=== PATIENT | female | born 1940 | race Caucasian/White ===

== ENCOUNTER 2018-08-23 15:09 | Inpatient (IN) | payer OTHER, MEDICAID ==
[~2018-08-23] VITALS: Ht 165.1 cm; Wt 65.3 kg
[2018-08-23 15:17] VITALS: Ht 165.1 cm; Wt 65.3 kg
[2018-08-23 15:56] LABS: PLATELET COUNT 223 x10^3mcL (130-400); RED CELL DISTRIBUTION WIDTH 14.4 % (11.5-14.5)
[2018-08-23 15:56] LABS: UA SPECIFIC GRAVITY 1.025 (1.005-1.035); microscopic required? YES; urine erythrocyte 3+ (NEGATIVE)
[2018-08-23 16:04] LABS: CALCIUM 9.1 mg/dL (8.5-10.1); CARBON DIOXIDE 25.9 mmol/L (21-32); CHLORIDE SERUM 96 mmol/L (98-107); CREATININE SERUM 1.3 mg/dL (0.6-1.0); GLUCOSE SERUM 327 mg/dL (74-106); POTASSIUM SERUM 3.9 mmol/L (3.5-5.1); SODIUM SERUM 130 mmol/L (136-145)
[2018-08-23 16:09] LABS: ALKALINE PHOSPHATASE 102 U/L (46-116); ALT/SGPT 17 U/L (14-59); AST/SGOT 24 U/L (15-37); BILIRUBIN TOTAL 0.76 mg/dL (0.20-1.00); TOTAL PROTEIN, SERUM 7.3 g/dL (6.4-8.2)
[2018-08-23 16:10] LABS: ALBUMIN 2.1 g/dL (3.4-5.0)
[2018-08-23 17:15] LABS: BAND NEUTROPHIL 10 % (0-10); BASOPHIL 0 % (0-2); MONOCYTE 2 % (0-7); PLATELET MORPHOLOGY PLATELETS NORMAL; SEGMENTED NEUTROPHILS 83 % (37-75); rbc morphology (normal/abnorm) NORMAL (NORMAL)
[2018-08-23 17:35] LABS: PHOSPHOROUS 1.9 mg/dL (2.5-4.9)
[2018-08-23 17:38] LABS: CHOLESTEROL/HDL RATIO 8.5
[2018-08-23 17:41] LABS: T3 TOTAL 0.58 ng/mL
[2018-08-23 17:43] VITALS: BP 145/63
[2018-08-23] MEDS ORDERED: GLIPIZIDE5 M2 (17:48)
[2018-08-23] MEDS ORDERED: GABAPENTIN100 M2 PO (17:48)
[2018-08-23] MEDS ORDERED: LANTUS SOLOS100 U/M1 INJ (17:49)
[2018-08-23] MEDS ORDERED: ZOCOR20 MG PO (17:50)
[2018-08-23] MEDS ORDERED: ZOLOFT50 MG PO (17:50)
[2018-08-23 18:06] LABS: FREE T4 1.48 ng/dL (0.76-1.46); FREE THYROXINE INDEX 3.2 ug/dL (1.4-4.5); T4(THYROXINE) 8.3 ug/dL (4.7-13.3)
[2018-08-23 20:43] VITALS: BP 136/60
[2018-08-24 05:34] VITALS: BP 127/68
[2018-08-24 06:02] LABS: PLATELET COUNT 191 x10^3mcL (130-400); RED CELL DISTRIBUTION WIDTH 14.4 % (11.5-14.5)
[2018-08-24 06:27] LABS: CALCIUM 8.4 mg/dL (8.5-10.1); CARBON DIOXIDE 23.7 mmol/L (21-32); CHLORIDE SERUM 105 mmol/L (98-107); CREATININE SERUM 1.1 mg/dL (0.6-1.0); GLUCOSE SERUM 249 mg/dL (74-106); PHOSPHOROUS 2.5 mg/dL (2.5-4.9); POTASSIUM SERUM 3.9 mmol/L (3.5-5.1); SODIUM SERUM 137 mmol/L (136-145)
[2018-08-24 07:23] LABS: BAND NEUTROPHIL 1 % (0-10); BASOPHIL 0 % (0-2); MONOCYTE 1 % (0-7); SEGMENTED NEUTROPHILS 94 % (37-75)
[2018-08-24 07:24] LABS: PLATELET MORPHOLOGY PLATELETS DECREASED; rbc morphology (normal/abnorm) ABNORMAL (NORMAL)
[2018-08-24 08:30] VITALS: BP 118/70
[2018-08-24 13:30] VITALS: BP 113/60
[2018-08-24 16:30] VITALS: BP 135/70
[2018-08-24 20:19] VITALS: BP 150/73
[2018-08-25 04:56] VITALS: BP 128/61
[2018-08-25 06:26] LABS: BASOPHIL % 0.1 % (0-2); PLATELET COUNT 189 x10^3mcL (130-400); RED CELL DISTRIBUTION WIDTH 14.4 % (11.5-14.5)
[2018-08-25 07:07] LABS: CALCIUM 8.2 mg/dL (8.5-10.1); CARBON DIOXIDE 22.6 mmol/L (21-32); CHLORIDE SERUM 107 mmol/L (98-107); CREATININE SERUM 1.1 mg/dL (0.6-1.0); GLUCOSE SERUM 150 mg/dL (74-106); POTASSIUM SERUM 3.3 mmol/L (3.5-5.1); SODIUM SERUM 138 mmol/L (136-145)
[2018-08-25 09:23] VITALS: BP 115/64
[2018-08-25 12:44] VITALS: BP 120/57
[2018-08-25 17:37] VITALS: BP 128/68
[2018-08-25 21:43] VITALS: BP 123/58
[2018-08-26 05:19] VITALS: BP 125/56
[2018-08-26 07:33] LABS: CALCIUM 7.9 mg/dL (8.5-10.1); CHLORIDE SERUM 108 mmol/L (98-107); CREATININE SERUM 1.1 mg/dL (0.6-1.0); GLUCOSE SERUM 111 mg/dL (74-106); POTASSIUM SERUM 4.3 mmol/L (3.5-5.1); SODIUM SERUM 136 mmol/L (136-145)
[2018-08-26 07:43] LABS: PLATELET COUNT 61 x10^3mcL (130-400); RED CELL DISTRIBUTION WIDTH 15.3 % (11.5-14.5)
[2018-08-26 10:03] VITALS: BP 143/68
[2018-08-26 12:27] LABS: BAND NEUTROPHIL 1 % (0-10); BASOPHIL 0 % (0-2); MONOCYTE 3 % (0-7); SEGMENTED NEUTROPHILS 90 % (37-75)
[2018-08-26 12:28] LABS: PLATELET MORPHOLOGY PLATELETS DECREASED; rbc morphology (normal/abnorm) ABNORMAL (NORMAL)
[2018-08-26 17:00] VITALS: BP 142/69
[2018-08-26 20:26] VITALS: BP 138/63
[2018-08-27 06:46] VITALS: BP 142/65
[2018-08-27 09:02] LABS: CALCIUM 8.5 mg/dL (8.5-10.1); CARBON DIOXIDE 27.2 mmol/L (21-32); CHLORIDE SERUM 105 mmol/L (98-107); GLUCOSE SERUM 198 mg/dL (74-106); POTASSIUM SERUM 4.4 mmol/L (3.5-5.1); SODIUM SERUM 138 mmol/L (136-145)
[2018-08-27 09:08] LABS: PLATELET COUNT 247 x10^3mcL (130-400)
[2018-08-27 09:12] VITALS: BP 137/57
[2018-08-27 09:18] LABS: BASOPHIL % 0 % (0-2); RED CELL DISTRIBUTION WIDTH 14.8 % (11.5-14.5)
[2018-08-27 17:10] VITALS: BP 146/63
[2018-08-27 21:13] VITALS: BP 133/67
[2018-08-28 05:31] VITALS: BP 123/50
[2018-08-28 06:21] LABS: BASOPHIL % 0.2 % (0-2); PLATELET COUNT 276 x10^3mcL (130-400)
[2018-08-28 06:27] LABS: CALCIUM 8.1 mg/dL (8.5-10.1); CARBON DIOXIDE 26.2 mmol/L (21-32); CHLORIDE SERUM 107 mmol/L (98-107); GLUCOSE SERUM 178 mg/dL (74-106); POTASSIUM SERUM 4.6 mmol/L (3.5-5.1); SODIUM SERUM 139 mmol/L (136-145)
[2018-08-28 06:43] LABS: RED CELL DISTRIBUTION WIDTH 14.8 % (11.5-14.5)
[2018-08-28 08:44] VITALS: BP 139/66
[2018-08-28 11:51] VITALS: BP 149/74
[2018-08-28 17:01] VITALS: BP 129/60
[2018-08-28 22:08] VITALS: BP 129/48
[2018-08-29 06:10] VITALS: BP 131/59
[2018-08-29 06:37] LABS: BASOPHIL % 0.2 % (0-2); PLATELET COUNT 321 x10^3mcL (130-400); RED CELL DISTRIBUTION WIDTH 14.5 % (11.5-14.5)
[2018-08-29 07:06] LABS: CALCIUM 8.4 mg/dL (8.5-10.1); CARBON DIOXIDE 27.5 mmol/L (21-32); CHLORIDE SERUM 105 mmol/L (98-107); GLUCOSE SERUM 144 mg/dL (74-106); MAGNESIUM 1.7 mg/dL (1.8-2.4); PHOSPHOROUS 3.2 mg/dL (2.5-4.9); POTASSIUM SERUM 5.3 mmol/L (3.5-5.1); SODIUM SERUM 137 mmol/L (136-145)
[2018-08-29 09:10] VITALS: BP 120/55
[2018-08-29 09:45] LABS: ALBUMIN 1.4 g/dL (3.4-5.0); BILIRUBIN DIRECT 0.13 mg/dL (0.0-0.2); BILIRUBIN TOTAL 0.2 mg/dL (0.20-1.00); TOTAL PROTEIN, SERUM 5.9 g/dL (6.4-8.2)
[2018-08-29 17:35] VITALS: BP 117/44
[2018-08-29 20:30] VITALS: BP 112/53
[2018-08-30 05:52] VITALS: BP 131/54
[2018-08-30 05:58] LABS: PLATELET COUNT 376 x10^3mcL (130-400)
[2018-08-30 06:15] LABS: RED CELL DISTRIBUTION WIDTH 14.9 % (11.5-14.5)
[2018-08-30 06:34] LABS: CALCIUM 8.4 mg/dL (8.5-10.1); CARBON DIOXIDE 27.4 mmol/L (21-32); CHLORIDE SERUM 104 mmol/L (98-107); GLUCOSE SERUM 80 mg/dL (74-106); MAGNESIUM 1.8 mg/dL (1.8-2.4); POTASSIUM SERUM 4.2 mmol/L (3.5-5.1); SODIUM SERUM 139 mmol/L (136-145)
[2018-08-30 08:46] LABS: BAND NEUTROPHIL 7 % (0-10); BASOPHIL 0 % (0-2); MONOCYTE 7 % (0-7); SEGMENTED NEUTROPHILS 68 % (37-75)
[2018-08-30 08:47] LABS: PLATELET MORPHOLOGY PLATELETS NORMAL; rbc morphology (normal/abnorm) ABNORMAL (NORMAL)
[2018-08-30 08:50] VITALS: BP 140/53
[2018-08-30 17:00] VITALS: BP 98/56
[2018-08-30 20:39] VITALS: BP 116/58
[2018-08-31 06:31] VITALS: BP 111/56
[2018-08-31 06:40] LABS: CARBON DIOXIDE 27.6 mmol/L (21-32); CHLORIDE SERUM 99 mmol/L (98-107); CREATININE SERUM 1.3 mg/dL (0.6-1.0); GLUCOSE SERUM 201 mg/dL (74-106); MAGNESIUM 1.8 mg/dL (1.8-2.4); PHOSPHOROUS 3.7 mg/dL (2.5-4.9); POTASSIUM SERUM 4.4 mmol/L (3.5-5.1); SODIUM SERUM 134 mmol/L (136-145)
[2018-08-31 07:40] LABS: PLATELET COUNT 445 x10^3mcL (130-400); RED CELL DISTRIBUTION WIDTH 14.9 % (11.5-14.5)
[2018-08-31 08:23] VITALS: BP 125/67
[2018-08-31 09:28] LABS: BAND NEUTROPHIL 10 % (0-10); BASOPHIL 0 % (0-2); MONOCYTE 7 % (0-7); SEGMENTED NEUTROPHILS 67 % (37-75)
[2018-08-31 09:30] LABS: PLATELET MORPHOLOGY PLATELETS NORMAL; rbc morphology (normal/abnorm) ABNORMAL (NORMAL)
[2018-08-31 17:21] VITALS: BP 111/67
[2018-08-31 22:09] VITALS: BP 119/63
[2018-09-01 05:27] VITALS: BP 107/51
[2018-09-01 07:34] LABS: PLATELET COUNT 385 x10^3mcL (130-400); RED CELL DISTRIBUTION WIDTH 14.5 % (11.5-14.5)
[2018-09-01 07:56] LABS: CALCIUM 8.4 mg/dL (8.5-10.1); CARBON DIOXIDE 25.8 mmol/L (21-32); CHLORIDE SERUM 104 mmol/L (98-107); CREATININE SERUM 1.3 mg/dL (0.6-1.0); GLUCOSE SERUM 135 mg/dL (74-106); MAGNESIUM 2.1 mg/dL (1.8-2.4); POTASSIUM SERUM 4.2 mmol/L (3.5-5.1); SODIUM SERUM 138 mmol/L (136-145)
[2018-09-01 09:59] VITALS: BP 112/55
[2018-09-01 16:22] LABS: BAND NEUTROPHIL 10 % (0-10); BASOPHIL 0 % (0-2); MONOCYTE 4 % (0-7); PLATELET MORPHOLOGY PLATELETS NORMAL; SEGMENTED NEUTROPHILS 78 % (37-75); rbc morphology (normal/abnorm) NORMAL (NORMAL)
[2018-09-01 16:51] VITALS: BP 111/55
[2018-09-01 21:28] VITALS: BP 104/52
[2018-09-02 05:03] VITALS: BP 131/65
[2018-09-02 06:37] LABS: CALCIUM 7.9 mg/dL (8.5-10.1); CARBON DIOXIDE 27.4 mmol/L (21-32); CHLORIDE SERUM 104 mmol/L (98-107); GLUCOSE SERUM 163 mg/dL (74-106); MAGNESIUM 2.2 mg/dL (1.8-2.4); PHOSPHOROUS 2.6 mg/dL (2.5-4.9); SODIUM SERUM 138 mmol/L (136-145)
[2018-09-02 07:24] LABS: RED CELL DISTRIBUTION WIDTH 13.5 % (11.5-14.5)
[2018-09-02 08:30] LABS: BASOPHIL % 0 % (0-2); PLATELET COUNT 449 x10^3mcL (130-400)
[2018-09-02 10:07] VITALS: BP 123/57
[2018-09-02 18:41] VITALS: BP 134/65
[2018-09-02 21:59] VITALS: BP 122/62
[2018-09-03 06:00] VITALS: BP 123/57
[2018-09-03 07:08] LABS: CALCIUM 8.1 mg/dL (8.5-10.1); CARBON DIOXIDE 27.9 mmol/L (21-32); CHLORIDE SERUM 105 mmol/L (98-107); GLUCOSE SERUM 160 mg/dL (74-106); MAGNESIUM 2.1 mg/dL (1.8-2.4); SODIUM SERUM 138 mmol/L (136-145)
[2018-09-03 07:38] LABS: BASOPHIL % 0.1 % (0-2); RED CELL DISTRIBUTION WIDTH 13.9 % (11.5-14.5)
[2018-09-03 08:22] LABS: PLATELET COUNT 490 x10^3mcL (130-400)
[2018-09-03 09:19] VITALS: BP 103/53
[2018-09-03 13:06] VITALS: BP 121/66
[2018-09-03 17:42] VITALS: BP 120/60
[2018-09-03 20:29] VITALS: BP 128/62
[2018-09-04 05:13] VITALS: BP 120/62
[2018-09-04 06:21] LABS: CALCIUM 8.4 mg/dL (8.5-10.1); CARBON DIOXIDE 31.2 mmol/L (21-32); CHLORIDE SERUM 104 mmol/L (98-107); CREATININE SERUM 1.1 mg/dL (0.6-1.0); GLUCOSE SERUM 155 mg/dL (74-106); MAGNESIUM 2.1 mg/dL (1.8-2.4); POTASSIUM SERUM 4.8 mmol/L (3.5-5.1); SODIUM SERUM 138 mmol/L (136-145)
[2018-09-04 08:02] LABS: PLATELET COUNT 503 x10^3mcL (130-400); RED CELL DISTRIBUTION WIDTH 14.9 % (11.5-14.5)
[2018-09-04 10:26] VITALS: BP 119/53
[2018-09-04 13:06] LABS: BAND NEUTROPHIL 0 % (0-10); BASOPHIL 0 % (0-2); MONOCYTE 6 % (0-7); SEGMENTED NEUTROPHILS 69 % (37-75); rbc morphology (normal/abnorm) NORMAL (NORMAL)
[2018-09-04 13:07] LABS: PLATELET MORPHOLOGY PLATELETS INCREASED
[2018-09-04 14:25] VITALS: BP 100/55
[2018-09-04 17:30] VITALS: BP 122/64
[2018-09-05 05:45] VITALS: BP 106/69
[2018-09-05 07:07] LABS: BASOPHIL % 0.4 % (0-2)
[2018-09-05 07:08] LABS: PLATELET COUNT 418 x10^3mcL (130-400); RED CELL DISTRIBUTION WIDTH 14.7 % (11.5-14.5)
[2018-09-05 07:24] LABS: CALCIUM 8.1 mg/dL (8.5-10.1); CARBON DIOXIDE 28.9 mmol/L (21-32); CHLORIDE SERUM 100 mmol/L (98-107); CREATININE SERUM 1.2 mg/dL (0.6-1.0); GLUCOSE SERUM 177 mg/dL (74-106); POTASSIUM SERUM 4.9 mmol/L (3.5-5.1); SODIUM SERUM 134 mmol/L (136-145)
[2018-09-05 10:26] VITALS: BP 98/55
[2018-09-05 14:39] VITALS: BP 105/53
[2018-09-05 16:20] VITALS: BP 122/68
[2018-09-05 21:29] VITALS: BP 111/44
[2018-09-06] VITALS (10 sets, daily range): BP systolic 93–108; BP diastolic 41–60
[2018-09-06 06:30] LABS: CARBON DIOXIDE 30.4 mmol/L (21-32); CHLORIDE SERUM 103 mmol/L (98-107); CREATININE SERUM 1.1 mg/dL (0.6-1.0); GLUCOSE SERUM 142 mg/dL (74-106); POTASSIUM SERUM 4.3 mmol/L (3.5-5.1); SODIUM SERUM 136 mmol/L (136-145)
[2018-09-06 06:56] LABS: BASOPHIL % 0.4 % (0-2); RED CELL DISTRIBUTION WIDTH 13.7 % (11.5-14.5)
[2018-09-06 07:38] LABS: PLATELET COUNT 406 x10^3mcL (130-400)
[2018-09-06 09:52] LABS: rbc morphology (normal/abnorm) ABNORMAL (NORMAL); tear drop cell (dacryocyte) 1+
[2018-09-06 12:17] LABS: BASOPHIL % 0.4 % (0-2); PLATELET COUNT 395 x10^3mcL (130-400); RED CELL DISTRIBUTION WIDTH 14.4 % (11.5-14.5)
[2018-09-06 13:56] LABS: rbc morphology (normal/abnorm) ABNORMAL (NORMAL)
[2018-09-07 02:00] VITALS: BP 109/59
[2018-09-07 05:59] LABS: BASOPHIL % 0.3 % (0-2)
[2018-09-07 06:02] VITALS: BP 98/53
[2018-09-07 06:32] LABS: PLATELET COUNT 413 x10^3mcL (130-400); RED CELL DISTRIBUTION WIDTH 14.9 % (11.5-14.5)
[2018-09-07 06:39] LABS: CALCIUM 8.3 mg/dL (8.5-10.1); CHLORIDE SERUM 105 mmol/L (98-107); MAGNESIUM 2.2 mg/dL (1.8-2.4); POTASSIUM SERUM 3.5 mmol/L (3.5-5.1); SODIUM SERUM 142 mmol/L (136-145)
[2018-09-07 06:42] LABS: GLUCOSE SERUM 50 mg/dL (74-106)
[2018-09-07 07:35] VITALS: BP 111/52
[2018-09-07 13:15] VITALS: BP 128/66
[2018-09-07 16:15] VITALS: BP 134/64
[2018-09-07 22:11] VITALS: BP 143/74
[2018-09-08 04:56] VITALS: BP 146/77
[2018-09-08 08:35] VITALS: BP 144/66
[2018-09-08] MEDS ORDERED: CARL PO (10:42)
[2018-09-08] MEDS ORDERED: PROT40I PR (10:43)
[2018-09-08] MEDS ORDERED: LAC PO (10:43)
[2018-09-08] MEDS ORDERED: NATURAL IRON65 MG PO (10:44)
[2018-09-08] MEDS ORDERED: LACTULOSE10 GM/152 PO (10:45)
[2018-09-08] MEDS ORDERED: MERREM IV1 GM IV (10:52)
[2018-09-08 11:07] LABS: BASOPHIL % 0.3 % (0-2); PLATELET COUNT 363 x10^3mcL (130-400)
[2018-09-08 11:13] LABS: RED CELL DISTRIBUTION WIDTH 15.2 % (11.5-14.5)
[2018-09-08 11:16] LABS: CALCIUM 8.3 mg/dL (8.5-10.1); CARBON DIOXIDE 28.4 mmol/L (21-32); CHLORIDE SERUM 103 mmol/L (98-107); CREATININE SERUM 0.9 mg/dL (0.6-1.0); GLUCOSE SERUM 150 mg/dL (74-106); POTASSIUM SERUM 4.2 mmol/L (3.5-5.1); SODIUM SERUM 138 mmol/L (136-145)
[2018-09-08 13:05] VITALS: BP 144/66
== END 2018-09-08 13:59 | DRG 853 ==
LOC: ED 15:09 → DU 16:29 → MU 16:29 → DU 17:15 → MU 08-25 17:02 → DU 09-02 17:30
PROVIDERS: Emergency Medicine; General Practice; Internal Medicine; Internal Medicine Gastroenterology; Surgery; ADMIT Family Medicine
PROC: 0FT44ZZ Resection of Gallbladder, Percutaneous Endoscopic Approach (ICD-10-PCS; principal; 2018-08-23 21:00)
PROC: 0W3P8ZZ Control Bleeding in Gastrointestinal Tract, Via Natural or Artificial Opening Endoscopic (ICD-10-PCS; 2018-09-06 09:00)
PROC: 30233N1 Transfusion of Nonautologous Red Blood Cells into Peripheral Vein, Percutaneous Approach (ICD-10-PCS; 2018-09-06 09:00)
DX: A41.9 Sepsis, unspecified organism (principal); E43 Unspecified severe protein-calorie malnutrition; K25.4 Chronic or unspecified gastric ulcer with hemorrhage; N17.0 Acute kidney failure with tubular necrosis; N39.0 Urinary tract infection, site not specified; K80.00 Calculus of gallbladder with acute cholecystitis without obstruction; K82.1 Hydrops of gallbladder; E87.1 Hypo-osmolality and hyponatremia; K82.A1 Gangrene of gallbladder in cholecystitis; E11.65 Type 2 diabetes mellitus with hyperglycemia; F32.9 Major depressive disorder, single episode, unspecified; E83.39 Other disorders of phosphorus metabolism; I10 Essential (primary) hypertension; E78.5 Hyperlipidemia, unspecified; M19.90 Unspecified osteoarthritis, unspecified site; Z66 Do not resuscitate; Z79.4 Long term (current) use of insulin; Z68.21 Body mass index [BMI] 21.0-21.9, adult
CPT/HCPCS: 43235; 78226; 82962; 84439; 94150; 97110-GP; 97116-GP; 97530-GP; A9537; C9113; J0171; J0330; J0690; J1170; J1200; J1610; J1815; J1885; J1940; J2060; J2185; J2250; J2270; J2310; J2405; J2543; J2710; J2916; J3010; J3490; J7030; J7040; J7050; P9016; Q0092; Q0163